=== PATIENT | male | born 1995 | race Caucasian/White ===

== ENCOUNTER 2018-11-19 14:42 | Inpatient (IN) | payer MEDICAID ==
[~2018-11-19] VITALS: Ht 167.6 cm; Wt 68.9 kg
[2018-11-19 14:56] VITALS: Ht 167.6 cm; Wt 68.9 kg
[2018-11-19 15:33] LABS: CALCIUM 8.2 mg/dL (8.5-10.1); CARBON DIOXIDE 27.4 mmol/L (21-32); CHLORIDE SERUM 97 mmol/L (98-107); GFR1 > 60 mL/min; GLUCOSE SERUM 99 mg/dL (74-106); SODIUM SERUM 134 mmol/L (136-145)
[2018-11-19 15:38] LABS: ALBUMIN 3.5 g/dL (3.4-5.0); ALKALINE PHOSPHATASE 92 U/L (46-116); ALT/SGPT 59 U/L (16-63); AST/SGOT 68 U/L (15-37); BILIRUBIN TOTAL 0.4 mg/dL (0.20-1.00); TOTAL PROTEIN, SERUM 7.4 g/dL (6.4-8.2)
[2018-11-19 15:43] LABS: RED CELL DISTRIBUTION WIDTH 12.7 % (11.5-14.5)
[2018-11-19 15:55] LABS: PLATELET COUNT 53 x10^3mcL (130-400)
[2018-11-19 16:19] LABS: BAND NEUTROPHIL 3 % (0-10); MONOCYTE 2 % (0-7); SEGMENTED NEUTROPHILS 7 % (37-75)
[2018-11-19 16:20] LABS: BASOPHIL 0 % (0-2)
[2018-11-19 16:21] LABS: rbc morphology (normal/abnorm) NORMAL (NORMAL)
[2018-11-19 17:43] LABS: MAGNESIUM 1.9 mg/dL (1.8-2.4); PHOSPHOROUS 2.4 mg/dL (2.5-4.9)
[2018-11-19 17:57] LABS: FREE T4 1.12 ng/dL (0.76-1.46); FREE THYROXINE INDEX 2.3 ug/dL (1.4-4.5); T4(THYROXINE) 7.5 ug/dL (4.7-13.3)
[2018-11-19 18:27] LABS: T3 TOTAL 0.9 ng/mL
[2018-11-19 18:44] VITALS: BP 93/60
[2018-11-19 20:40] VITALS: BP 96/54
[2018-11-20 04:53] VITALS: BP 98/52
[2018-11-20 07:41] LABS: RED CELL DISTRIBUTION WIDTH 13.1 % (11.5-14.5)
[2018-11-20 08:17] LABS: ALKALINE PHOSPHATASE 81 U/L (46-116); ALT/SGPT 49 U/L (16-63); AST/SGOT 52 U/L (15-37); BILIRUBIN TOTAL 0.31 mg/dL (0.20-1.00); CALCIUM 8.3 mg/dL (8.5-10.1); CARBON DIOXIDE 27.2 mmol/L (21-32); CHLORIDE SERUM 105 mmol/L (98-107); CREATININE SERUM 0.8 mg/dL (0.7-1.3); GFR1 > 60 mL/min; GLUCOSE SERUM 80 mg/dL (74-106); MAGNESIUM 2.1 mg/dL (1.8-2.4); POTASSIUM SERUM 4.8 mmol/L (3.5-5.1); SODIUM SERUM 140 mmol/L (136-145); TOTAL PROTEIN, SERUM 6.3 g/dL (6.4-8.2)
[2018-11-20 08:21] LABS: ALBUMIN 2.9 g/dL (3.4-5.0)
[2018-11-20 08:28] VITALS: BP 95/53
[2018-11-20 16:20] LABS: SEGMENTED NEUTROPHILS 26 % (37-75)
[2018-11-20 16:21] LABS: ATYPICAL LYMPH 6 %; BAND NEUTROPHIL 12 % (0-10)
[2018-11-20 16:22] LABS: PLATELET MORPHOLOGY PLATELETS DECREASED
[2018-11-20 17:13] LABS: PLATELET COUNT 48 x10^3mcL (130-400)
[2018-11-20 17:15] VITALS: BP 92/49
[2018-11-20 17:16] LABS: rbc morphology (normal/abnorm) ABNORMAL (NORMAL)
[2018-11-20 21:22] VITALS: BP 95/59
[2018-11-21 06:06] VITALS: BP 91/42
[2018-11-21 07:06] LABS: RED CELL DISTRIBUTION WIDTH 12.9 % (11.5-14.5)
[2018-11-21 07:15] LABS: PLATELET COUNT 59 x10^3mcL (130-400)
[2018-11-21 07:19] LABS: CALCIUM 8.9 mg/dL (8.5-10.1); CARBON DIOXIDE 26.4 mmol/L (21-32); CHLORIDE SERUM 104 mmol/L (98-107); CREATININE SERUM 0.8 mg/dL (0.7-1.3); GFR1 > 60 mL/min; GLUCOSE SERUM 87 mg/dL (74-106); PHOSPHOROUS 2.7 mg/dL (2.5-4.9); SODIUM SERUM 138 mmol/L (136-145)
[2018-11-21 09:27] VITALS: BP 94/55
[2018-11-21 11:45] LABS: BAND NEUTROPHIL 12 % (0-10); BASOPHIL 0 % (0-2); MONOCYTE 22 % (0-7); SEGMENTED NEUTROPHILS 22 % (37-75)
[2018-11-21 11:46] LABS: METAMYELOCTE 0 % (0-2); MYELOCYTE 0 % (0-2); rbc morphology (normal/abnorm) ABNORMAL (NORMAL)
[2018-11-21 16:09] VITALS: BP 94/55
[2018-11-21 17:36] VITALS: BP 99/60
== END 2018-11-21 18:00 | disposition home or self-care (01) | DRG 720 ==
LOC: ED 14:42 → MU 16:38
PROVIDERS: Emergency Medicine; ADMIT General Practice
DX: A41.9 Sepsis, unspecified organism (principal); D69.6 Thrombocytopenia, unspecified; A08.4 Viral intestinal infection, unspecified; E87.1 Hypo-osmolality and hyponatremia; D72.818 Other decreased white blood cell count; Z68.24 Body mass index [BMI] 24.0-24.9, adult
CPT/HCPCS: 84439; G0378; J7030; Q0092